=== PATIENT | male | born 1980 | race American Indian/Alaskan Native ===

== ENCOUNTER 2019-04-23 02:56 | Emergency (ER) | payer BC ==
--- NOTE | 2019-04-23 05:13 | Emergency Department Report ---
ED Laceration [facility] - HPI Chief Complaint: Wound/Laceration Stated Complaint: HAND LAC Time Seen by Provider: 04/23/19 04:31 Location: Upper Extremity Severity: moderate Tetanus Status: Not up to Date Laceration Symptoms: Yes Pain, No Foreign Body Sensation, No Numbness, No Weakness Other History: pt states he cut his right hand on glass in sink this am. no foreign body bleedin controlled by direct pressure rom intact no nerve tendon or muscle damage ED Review of Systems ROS: Stated complaint: HAND LAC Other details as noted in HPI Constitutional: denies: chills, fever Eyes: denies: eye pain, eye discharge, vision change ENT: denies: ear pain, throat pain Respiratory: denies: cough, shortness of breath, wheezing Cardiovascular: denies: chest pain, palpitations Endocrine: no symptoms reported Gastrointestinal: denies: abdominal pain, nausea, diarrhea Genitourinary: denies: urgency, dysuria Musculoskeletal: other (right hand laceration). denies: back pain, joint swelling, arthralgia Skin: denies: rash, lesions Neurological: denies: headache, weakness, numbness, paresthesias, confusion, vertigo Psychiatric: denies: anxiety, depression Hematological/Lymphatic: denies: easy bleeding, easy bruising ED Past Medical Hx - Past Medical History Previous Medical History?: No - Surgical History Past Surgical History?: No - Social History Smoking Status: Current Every Day Smoker Substance Use Type: Alcohol - Medications Home Medications: Home Medications Medication Instructions Recorded Confirmed Last Taken Type cephALEXin [Keflex] 500 mg PO TID 10 Days #30 cap 04/23/19 Unknown Rx traMADol [Ultram] 50 mg PO Q6HR PRN #12 tablet 04/23/19 Unknown Rx Laceration Physical Exam - Exam General: Vital signs noted. No distress. Alert and acting appropriately. Wound Length (cm): 2 Laceration Location: Upper Extremity Laceration Exam: Yes Normal Distal CMS, No Foreign Body, No Exposed Tendon, Vessel, or Nerve, No Tendon Injury ED Course Vital Signs 04/23/19 03:03 Temperature 98.1 F Pulse Rate 61 Respiratory 18 Rate Blood Pressure 151/91 O2 Sat by Pulse 99 Oximetry - Laceration /Wound Repair Right Volar Hand Wound Location: upper extremity Wound Length (cm): 2 Wound's Depth, Shape: irregular, flap Wound Explored: clean Irrigated w/ Saline (ccs): 20 Betadine Prep?: Yes Anesthesia: 1% Lidocaine Volume Anesthetic (ccs): 2 Wound Debrided: moderate Wound Repaired With: sutures Suture Size/Type: 4:0, nylon Number of Sutures: 8 Layer Closure?: No Sterile Dressing Applied?: Yes Progress: right lateral hand laceration wound cleaned with betadine solution anesthesia wiith 2 ml, wound irrigated with 20cc sterile saline solution, wound closed wtih 4.0 nylon x 8 suture pt verbalized agreement and understanding of discharge, all bleeding is controlled pt tolerated procedur with minimal distress, . ED Medical Decision Making - Medical Decision Making laceration repair see procedure not pt tolerated procedure with minimal distress will follow up with pcp in 2 days for wound check and 7-10 days for suture removal. pt dc'd to home in stable condition at this time. Critical care attestation.: If time is entered above; I have spent that time in minutes in the direct care of this critically ill patient, excluding procedure time. ED Disposition Clinical Impression: Laceration of hand Qualifiers: Encounter type: initial encounter Foreign body presence: without foreign body Laterality: right Qualified Code(s): S61.411A - Laceration without foreign body of right hand, initial encounter Disposition: DC-01 TO HOME OR SELFCARE Is pt being admited?: No Does the pt Need Aspirin: No Condition: Stable Instructions: Laceration (ED) Prescriptions: cephALEXin [Keflex] 500 mg PO TID 10 Days #30 cap traMADol [Ultram] 50 mg PO Q6HR PRN #12 tablet PRN Reason: Pain Referrals: LAURYN SAMANO MD [Primary Care Provider] - 3-5 Days Forms: Work/School Release Form(ED) Time of Disposition: 05:36
[2019-04-23 05:48] VITALS: BP 146/91
== END 2019-04-23 05:47 | disposition home or self-care (01) ==
LOC: ED 02:56
DX: S61.411A Laceration without foreign body of right hand, initial encounter (principal); F17.200 Nicotine dependence, unspecified, uncomplicated; Z79.899 Other long term (current) drug therapy; W25.XXXA Contact with sharp glass, initial encounter; Y93.89 Activity, other specified; Y92.89 Other specified places as the place of occurrence of the external cause; Y99.8 Other external cause status
CPT/HCPCS: 99282